=== PATIENT | female | born 1975 | race Two or more races ===

== ENCOUNTER 2021-10-25 04:02 | Emergency (ER) | payer MEDICAID ==
[~2021-10-25] VITALS: Ht 162.6 cm; Wt 118.2 kg
[2021-10-25 04:07] VITALS: BP 141/85
== END 2021-10-25 06:08 | disposition left against medical advice (07) ==
LOC: ER 04:04
DX: M25.561 Pain in right knee (principal); Z53.21 Procedure and treatment not carried out due to patient leaving prior to being seen by health care provider
CPT/HCPCS: 73564